=== PATIENT | male | born 1955 | race African-American/Black ===

== ENCOUNTER 2020-06-16 16:33 | Emergency (ER) | payer MEDICARE, OTHER ==
[~2020-06-16] VITALS: Ht 175.3 cm; Wt 63.6 kg
[2020-06-16] MEDS ORDERED: MORPHINE SULFATE 4 MG/ML SYRINGE IVP ONE (17:00)
[2020-06-16] MEDS ORDERED: ONDANSETRON HCL 4 MG/2 ML VIAL IVP ONE (17:00)
[2020-06-16 18:25] LABS: EOSINOPHILS % (AUTO) 1.5 % (1.0-6.0); HEMATOCRIT 38.5 % (41-53); HEMOGLOBIN 12.5 g/dL (13.5-17.5); MEAN CORPUSCULAR HEMOGLOBIN 30.2 pg (26.0-34.0); MEAN CORPUSCULAR HGB CONC 32.6 G/dL (31.0-37.0); MEAN CORPUSCULAR VOLUME 93 fL (80-100); MONOCYTES # (AUTO) 0.5 K/uL (0.1-1.0); MONOCYTES % (AUTO) 7.8 % (2.0-9.0); NEUTROPHILS # (AUTO) 4.3 K/uL (1.8-7.7); NEUTROPHILS % (AUTO) 72.7 % (40.0-70.0); PLATELET COUNT (AUTO) 609 K/uL (150-450); RED BLOOD CELL COUNT(AUTO) 4.16 MIL/uL (4.50-5.90); RED CELL DISTRIBUTION WIDTH 14.2 % (11.5-14.5)
[2020-06-16 18:31] LABS: CALCIUM, TOTAL 9.2 mg/dL (8.8-10.5); CREATININE 1.46 mg/dL (0.60-1.30); POTASSIUM 4.7 mmol/L (3.5-5.1)
[2020-06-16 18:40] LABS: ALBUMIN 2.7 g/dL (3.4-5.0); BILIRUBIN,TOTAL 0.3 mg/dL (0.1-1.0); TOTAL PROTEIN, SERUM 7.9 g/dL (6.4-8.2)
[2020-06-16] MEDS ORDERED: SODIUM CHLORIDE 0.9% 100 ML ONE (19:06)
[2020-06-16] MEDS ORDERED: IOVERSOL 350 MG/ML 100 ML VIAL ONE (19:07)
[2020-06-16 20:21] VITALS: BP 145/90
[2020-06-16 21:25] LABS: COVID AG,FIA SOURCE NASOPHARYNGEAL
== END 2020-06-16 21:00 | disposition home or self-care (01) ==
LOC: EMS 16:33
DX: N40.0 Benign prostatic hyperplasia without lower urinary tract symptoms (principal); K46.9 Unspecified abdominal hernia without obstruction or gangrene; N43.3 Hydrocele, unspecified; Z20.822 Contact with and (suspected) exposure to COVID-19
CPT/HCPCS: 36415; 74177; 80053; 85025; 87426; 96374; 96375; 99285; C9803; J2270; J2405; J7050; Q9967